=== PATIENT | male | born 1995 ===

== ENCOUNTER 2017-05-06 00:50 | Inpatient (IN) | payer OTHER, BC ==
[2017-05-06 01:58] LABS: ABS Basophils 0 10^3/ul (0-0.2); ABS Eosinophils 0 10^3/ul (0-0.6); ABS Lymphocytes 1.1 10^3/ul (1.0-4.8); ABS Monocytes 0.5 10^3/ul (0-0.8); ABS Neutrophils 5.8 10^3/ul (1.5-7.7); ABS Nucleated RBC 0 10^3/ul; Eosinophil % 0.2 % (0-6); Hematocrit 47 % (42-52); Hemoglobin 15.7 g/dl (14.0-18.0); Lymphocyte % 14.3 % (25-47); Mean Corpuscular HGB Conc 33 g/dl (31-36); Mean Corpuscular Hemoglobin 30 pg (27-31); Mean Corpuscular Volume 90 fL (80-94); Mean Platelet Volume 8 um3 (7.4-10.4); Nucleated Red Blood Cells % 0; Platelet Count 264 10^3/ul (150-450); Red Blood Count 5.22 10^6/ul (4.0-5.4); Red Cell Distribution Width 15 % (10.5-15); White Blood Count 7.4 10^3/ul (3.5-10.8)
[2017-05-06 02:09] LABS: EGFR Non-African American 71.6 (>60)
[2017-05-06 02:11] LABS: Urine Appearance Clear; Urine Blood Negative (Negative); Urine Color Yellow; Urine Ketones Trace (Negative); Urine Protein Negative (Negative); Urine Specific Gravity 1.013 (1.010-1.030); Urine Urobilinogen Positive (Negative)
[2017-05-06] MEDS ORDERED: Acetaminophen TAB* 325 MG PO PRN (04:12)
[2017-05-06] MEDS ORDERED: Al Hydrox/Mg Hydrox/Simet LIQ* 30 ML UDC PO PRN (04:12)
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
[2017-05-06] MEDS: Vitamin THERAPEUTIC TAB PO SCH (08:54)
[2017-05-06] MEDS ORDERED: LORazepam TAB(*) 1 MG PO ONE (12:03)
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
[2017-05-06] MEDS ORDERED: LORazepam TAB(*) 1 MG ONE (12:07)
[2017-05-06] MEDS: chlorproMAZINE TAB* 50 MG Q6H PRN AGITATION PO (12:08)
[2017-05-07] MEDS ORDERED: chlorproMAZINE TAB* 50 MG PO PRN (00:30)
[2017-05-07] MEDS ORDERED: LORazepam TAB(*) 1 MG PO PRN (00:30)
[2017-05-07] MEDS ORDERED: LORazepam TAB(*) 1 MG ONE (02:12)
[2017-05-07 06:39] LABS: EGFR Non-African American 66.7 (>60)
[2017-05-07] MEDS: Vitamin THERAPEUTIC TAB PO SCH (08:16)
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
[2017-05-07] MEDS ORDERED: diPHENhydraMINE IV* 50 MG/ML 1 ml VIAL (BENADRYL) IM PRN (17:31)
[2017-05-07] MEDS: Haloperidol TAB* 0.5 MG PO SCH (22:17)
[2017-05-07] MEDS: Benztropine TAB* 1 MG PO SCH ×2 (22:17→23:20)
[2017-05-07] MEDS: Haloperidol TAB* 5 MG ONE ×2 (23:20→23:25)
[2017-05-08] MEDS: Haloperidol TAB* 0.5 MG PO SCH ×2 (10:18→22:54)
[2017-05-08] MEDS: Vitamin THERAPEUTIC TAB PO SCH (10:19)
[2017-05-08] MEDS: Benztropine TAB* 1 MG PO SCH ×2 (10:19→22:54)
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
[2017-05-09] MEDS: traZODone TAB* 50 MG TAB PO PRN (03:30)
[2017-05-09] MEDS: Benztropine TAB* 1 MG PO SCH ×2 (09:37→21:35)
[2017-05-09] MEDS: Vitamin THERAPEUTIC TAB PO SCH (09:38)
[2017-05-09] MEDS: Haloperidol TAB* 0.5 MG PO SCH ×2 (09:38→21:35)
[2017-05-10] MEDS: traZODone TAB* 50 MG TAB PO PRN (01:09)
[2017-05-10] MEDS: chlorproMAZINE TAB* 50 MG Q6H PRN AGITATION PO (05:47)
[2017-05-10] MEDS: Haloperidol TAB* 0.5 MG PO SCH ×2 (09:28→21:05)
[2017-05-10] MEDS: Benztropine TAB* 1 MG PO SCH ×2 (09:28→21:05)
[2017-05-10] MEDS: Vitamin THERAPEUTIC TAB PO SCH (09:28)
--- NOTE | 2017-05-10 21:48 | PN ---
Subjective - Subjective Date of Service: 05/10/17 Service Type: 13391 Hosp care 15 min low complexity Subjective: Came happily for the assessment saying he didn't have any problem and learned his lesson. Willn't do drugs anymore. Just wants to finish his college and move on. Doesn't believe he has drug problem or in need for rehab. Finally agreed to consider after his current semester. Denies hallucinations, delusions, SI or HI. Objective - Appearance Appearance: Thin Framed Dysmorphic Features: No Hygiene: Normal Grooming: Well Kept - Behavior Psychomotor Activities: Normal Exhibits Abnormal Movement: No - Attitude and Relatedness Attitude and Relatedness: Appropriate Eye Contact: Good - Speech Quality: Unpressured Latencies: Normal Quantity: Appropriate - Mood Patient's Decription of Mood: "Great" - Affect Observed Affect: Non-labile Affect Consistent with: Euphoria - Thought Process Patient's Thought Process: Coherent, Goal Directed Thought Content: No Passive Wish, No Suicidal Planning, No Homicidal Ideation, No Paranoid Ideation - Sensorium Experiencing Hallucinations: No, Sensorium is Clear Type of Hallucinations: Visual: No, Auditory: No, Command: No - Level of Consciousness Level of Consciousness: Alert Orientation: Yes Intact, Yes Orientated to Time, Yes Orientated to Place, Yes Orientated to Person - Impulse Control Impulse Control: Intact - Insight and Judgement Insight and Judgement: Poor - Group Participation Particating in Group Activities: Yes - Medication Management Medication Management Adherence: Yes Assessment - Assessment Merits Inpatient Hospitalization: Consolidate Improvements, For Discharge Planning Plan - Plan Treatment Plan: Name: JEREMIAH ROBERTS Birthdate: 1995 [id number] Continued Medication Management: Continue Outpt Medication Medications: Current Medications Acetaminophen (Tylenol Tab*) 650 mg PO Q4H PRN PRN Reason: PAIN or TEMP > 101 F Al Hydrox/Mg Hydrox/Simethicone (Maalox Plus*) 30 ml PO Q4H PRN PRN Reason: INDIGESTION Benztropine Mesylate (Cogentin Tab*) 1 mg PO BID@09,21 LOVE Last Admin: 05/10/17 21:05 Dose: 1 mg Chlorpromazine HCl (Thorazine Tab*) 50 mg PO Q6H PRN PRN Reason: ANXIETY/ INSOMNIA Last Admin: 05/10/17 05:47 Dose: 50 mg Chlorpromazine HCl (Thorazine Tab*) 50 mg PO ONCE PRN PRN Reason: AGITATION/ INSOMNIA Diphenhydramine HCl (Benadryl Iv*) 50 mg IM Q6H PRN PRN Reason: EPS OR ADR Haloperidol (Haldol Tab*) 0.5 mg PO BID@ [facility] Last Admin: 05/10/17 21:05 Dose: 0.5 mg Lorazepam (Ativan Tab(*)) 1 mg PO ONCE PRN PRN Reason: AGITATION/ INSOMNIA Multivitamins (Theragran Tab*) 1 tab PO DAILY [facility] Last Admin: 05/10/17 09:28 Dose: 1 tab Trazodone HCl (Desyrel Tab*) 50 mg PO BEDTIME PRN PRN Reason: INSOMNIA Last Admin: 05/10/17 01:09 Dose: 50 mg - Discharge Plan Discharge Plan: Outpatient Follow Up Outpatient Program: Counseling/Psych Services at [facility]
[2017-05-11] MEDS: chlorproMAZINE TAB* 50 MG Q6H PRN AGITATION PO (03:21)
[2017-05-11] MEDS: Haloperidol TAB* 0.5 MG PO SCH (10:34)
[2017-05-11] MEDS: Vitamin THERAPEUTIC TAB PO SCH (10:34)
[2017-05-11] MEDS: Benztropine TAB* 1 MG PO SCH ×2 (10:34→23:46)
--- NOTE | 2017-05-11 10:51 | PN ---
Subjective - Subjective Subjective: Psychiatric attending progress note: Met with Nila X 15 min Over weekend, took naps during the day. had difficulty falling asleep at night. Despite trazodone 50 mg, still had mid am awakenings and received Chlorpromazine 50 mg on two occasions with good effect. Father arrived from [place] and visited with Nila over weekend. I Discussed again with Nila dangers of using drugs. I related that he has a substance use disorder further talked about cocaine induced psychosis which he was admitted for and increased risk for further episodes in future. Importance of sobriety further discussed. He agreed to attend an [facility] substance rehab program in [place] and after completing program to see an individual therapist (with specialty in drug rehab) on a weekly basis. We discussed his ADHD and how untreated ADHD increases risk of substance use. He has been prescribed Ritalin 20 mg by psychiatrist at [facility] but rarely uses it. WE discussed importance of increasingly adherence to his ADHD medication Family meeting with Nila and father present Father agreed to increase communication with Jamar in order to help him stay on target with his treatment. Father will be staying x 1 week and we discussed d/c for tomorrow. 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 MSE: restless and motor overactive which is his baseline speech: mildly hyperverbal, rapid TP organized TC denies any paranoid ideation or persecutory/bizarre delusons today does not believe he was hypnotized by [employer] peer any longer. no longer obsessing about frat brother Inist and judgment intact Impression: ADHD Cocaine use disorder Cocaine induced psychotic disorder with delusions insomnia Plan: Ritalin 5 mg BID on discharge Increase Trazodone 100 mg QHS Start Clonidine 0.1 mg QHS d/c thorazine Haldol 0.5 mg BID cogentin 1 mg BID Plan - Plan Treatment Plan: Name: NILA ROBERTS Birthdate: 1995 [id number] Medications: Current Medications Acetaminophen (Tylenol Tab*) 650 mg PO Q4H PRN PRN Reason: PAIN or TEMP > 101 F Al Hydrox/Mg Hydrox/Simethicone (Maalox Plus*) 30 ml PO Q4H PRN PRN Reason: INDIGESTION Benztropine Mesylate (Cogentin Tab*) 1 mg PO BID@ [facility] Last Admin: 05/11/17 10:34 Dose: 1 mg Chlorpromazine HCl (Thorazine Tab*) 50 mg PO Q6H PRN PRN Reason: ANXIETY/ INSOMNIA Last Admin: 05/11/17 03:21 Dose: 50 mg Chlorpromazine HCl (Thorazine Tab*) 50 mg PO ONCE PRN PRN Reason: AGITATION/ INSOMNIA Diphenhydramine HCl (Benadryl Iv*) 50 mg IM Q6H PRN PRN Reason: EPS OR ADR Haloperidol (Haldol Tab*) 0.5 mg PO BID@ [facility] Last Admin: 05/11/17 10:34 Dose: 0.5 mg Lorazepam (Ativan Tab(*)) 1 mg PO ONCE PRN PRN Reason: AGITATION/ INSOMNIA Multivitamins (Theragran Tab*) 1 tab PO DAILY [facility] Last Admin: 05/11/17 10:34 Dose: 1 tab Trazodone HCl (Desyrel Tab*) 50 mg PO BEDTIME PRN PRN Reason: INSOMNIA Last Admin: 05/10/17 01:09 Dose: 50 mg
[2017-05-11] MEDS ORDERED: traZODone TAB* 50 MG TAB PO PRN (14:21)
[2017-05-11] MEDS ORDERED: cloNIDine TAB* 0.1 MG PO SCH (21:00)
[2017-05-12] MEDS: Haloperidol TAB* 0.5 MG PO SCH ×2 (02:00→09:08)
[2017-05-12 08:38] VITALS: BP 102/46
[2017-05-12] MEDS: Benztropine TAB* 1 MG PO SCH (09:07)
[2017-05-12] MEDS: Methylphenidate TAB* 5 MG PO SCH ×3 (09:07→11:22)
[2017-05-12] MEDS: Vitamin THERAPEUTIC TAB PO SCH (09:08)
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
== END 2017-05-12 12:55 | disposition home or self-care (01) | DRG 897 ==
LOC: ED 00:50 → BSU 04:10
PROVIDERS: ADMIT Psychiatry & Neurology Psychiatry; ATTEND Psychiatry & Neurology Psychiatry
DX: F14.250 Cocaine dependence with cocaine-induced psychotic disorder with delusions (principal); F14.229 Cocaine dependence with intoxication, unspecified; F13.10 Sedative, hypnotic or anxiolytic abuse, uncomplicated; F90.2 Attention-deficit hyperactivity disorder, combined type; G47.00 Insomnia, unspecified; R45.1 Restlessness and agitation; Z83.3 Family history of diabetes mellitus
CPT/HCPCS: 36415; 80053; 80307; 80320; 80329; 81003; 84436; 84439; 84443; 85025; 99284; A9270-GY; G0480